=== PATIENT | male | born 1940 | race Caucasian/White ===

== ENCOUNTER 2018-03-27 00:52 | Day surgery (SDC) | payer MEDICARE, BC ==
[~2018-03-27] VITALS: Ht 182.9 cm; Wt 91.2 kg
[~2018-03-27 00:52] MED LIST: ACE325 PO; ASPI-715 PO; BIS10S PR; CEP500 PO; CIP500 PO; DEX1 PO; DOC100 PO; FAM20 PO; LISI-362 PO; LOR5/325 PO; LUMIGAN EYE DROPS OP; MOM PO; PAN40 PO; PHEN-530 PO; PHENA200 PO; SIMV-42 PO; TAM4 PO; TAMS0.4C76 PO; [UNRECOGNIZED DRUG - CODE] PO; [UNRECOGNIZED DRUG - OTHER] PO
[2018-03-27] MEDS ORDERED: OPHTHALMIC PROCEDURE 2 OU PRN ×2 (06:00)
[2018-03-27] MEDS ORDERED: acetaZOLAMIDE 500 MG CAPCR PO ONE (06:00)
[2018-03-27] MEDS ORDERED: OPHTHALMIC PROCEDURE 1 OU PRN (06:00)
[2018-03-27 13:13] VITALS: BP 123/89
[2018-03-27] MEDS ORDERED: NORMOSOL R SOLN(*) 1000 ML BAG 1,000 ML IV PRN (13:30)
[2018-03-27] MEDS ORDERED: LIDOCAINE/SOD BICARB 8.4% SYR ID ONE (13:30)
[2018-03-27 15:01] VITALS: BP 105/71
--- NOTE | 2018-03-29 13:12 | FOSTER LEFT EYE CATARACT ---
EVENT DATE: March 27, 2018 SURGEON: Leonard Novoa MD ANESTHESIA: Topical. PREOPERATIVE DIAGNOSIS Cataract, left eye. POSTOPERATIVE DIAGNOSIS Cataract, left eye. PROCEDURE Phacoemulsification of cataractous lens with implantation of an intraocular lens , left eye. DESCRIPTION OF PROCEDURE The risks and benefits and alternatives were carefully discussed with the patient, and preoperative consent was obtained. The patient was brought to the operating room after receiving topical anesthetic. The patient was prepped and draped using sterile technique in the usual manner. A stab incision was made, and the chamber was inflated with preservative-free lidocaine. DuoVisc was injected to inflate the chamber. A 2.2 mm blade was used to enter the anterior chamber. Utrata forceps were used to tear a circular capsulorrhexis. BSS was used to hydrodissect the nucleus. Phaco tip was introduced, and the nucleus was chopped into four quadrants. Each quadrant was removed. The I/A tip was used to remove the cortex. The bag was inflated with ProVisc. The intraocular lens was injected into the capsular bag. The I/A tip was used to remove the ProVisc. The wound was found to be watertight. Vigamox, Nevanac, and Maxitrol ointment were placed in the patient's eye. The patient's eye was patched, and the patient was taken to the recovery room in stable condition. The patient was examined in the recovery room and found to be stable prior to release from the hospital. JOSE
== END 2018-03-27 15:50 | disposition home health service (06) ==
LOC: OR 00:52
PROVIDERS: ATTEND Ophthalmology
DX: H25.12 Age-related nuclear cataract, left eye (principal)
CPT/HCPCS: 66984; A9270; V2632

== ENCOUNTER 2018-11-08 16:34 | Emergency (ER) | payer MEDICARE, BC ==
--- NOTE | 2018-11-08 16:38 | ER Report ---
History and Physical Time Seen By MD: 16:38 HPI/ROS CHIEF COMPLAINT: chest pain HISTORY OF PRESENT ILLNESS: PT here for evaluation of chest pain. Pt states that he has had substernal chest pain on and off for 2 weeks. pain comes about 2-3 times a day and can last up to 10 minutes. Pt States today at 2pm the pain came on and it is constant. Pt is unable to discribe. No sob. no nausea . no diaphoresis. Pt did have some tingling to right arm but that is gone.no weakness. no hx of cardiac ds but does have htn and hyperlipid. Pt takes a baby asa everyother day due to hx of frequent nose bleeds REVIEW OF SYSTEMS: Constitutional: No fever, no chills. Eyes: No discharge. ENT: No sore throat. Cardiovascular: + chest pain, no palpitations. Respiratory: No cough, no shortness of breath. Gastrointestinal: No abdominal pain, no vomiting. Genitourinary: No hematuria. Musculoskeletal: No back pain. Skin: No rashes. Neurological: No headache. Allergies: Coded Allergies: No Known Drug Allergies (Verified , 01/02/12) Home Meds Reported Medications Lisinopril (LISINOPRIL) 10 Mg Tablet, 10 MG PO QDAY, TAB 03/20/18 Simvastatin (Zocor) 20 Mg Tablet, 20 MG PO QHS, 0 Refills 12/25/11 Aspirin (Aspirin) 81 Mg Tablet.dr, 81 MG PO DAILY, 0 Refills 12/25/11 Past Medical/Surgical History Pmhx: htn, hyperlipid, prediabetic, cva, macular degeneration Hx Smoking: No Smoking Status: Former Smoker Hx Substance Use Disorder: No Hx Alcohol Use: Yes Constitutional Vital Sign - Last 24 Hours 11/08/18 11/08/18 11/08/18 11/08/18 16:34 16:44 16:49 16:59 Pulse ??? 80 Resp 12 B/P (MAP) 101/74 (83) 114/86 (95) Pulse Ox 90 11/08/18 11/08/18 11/08/18 11/08/18 17:04 17:15 17:19 17:30 Pulse 78 77 Resp 12 13 B/P (MAP) 101/82 (88) 104/72 (83) 110/72 (85) Pulse Ox 91 89 11/08/18 11/08/18 11/08/18 17:34 17:45 17:49 Pulse 81 73 Resp 10 40 B/P (MAP) 110/79 (89) Pulse Ox 90 91 Physical Exam General Appearance: The patient is alert, has no immediate need for airway protection and no signs of toxicity. Eyes: Pupils equal and round no pallor or injection, EOMI ENT: no pharyngeal erythema or exudates, Mucous membranes are moist, TM are nl b/l Respiratory: There are no retractions, lungs are clear to auscultation. Cardiovascular: Regular rate and rhythm. pulses are equal and symmetrical Gastrointestinal: Abdomen is soft and non tender, no masses, bowel sounds normal, no guarding, no rigidity or rebound Neurological: Cranial nerves II-XII grossly intact, no sensory or motor loss Skin: Warm and dry, no rashes. Musculoskeletal: Neck is supple non tender, no vertebral tenderness Extremities are nontender, non swollen and have full range of motion. DIFFERENTIAL DIAGNOSIS: After history and physical exam differential diagnosis was considered for mi, acs, esophageal spasm, costochondrities Medical Decision Making Data Points Result Diagram: 11/08/18 1705 11/08/18 1705 Laboratory Hematology Test 11/08/18 17:05 Red Blood Count 5.40 M/uL (4.00-5.60) Mean Corpuscular Volume 88.2 fL (80.0-96.0) Mean Corpuscular Hemoglobin 30.8 pg (26.0-33.0) Mean Corpuscular Hemoglobin Concent 35.0 g/dL (32.0-36.0) Red Cell Distribution Width 13.3 % (11.5-14.5) Mean Platelet Volume 9.1 fL (7.2-11.1) Neutrophils (%) (Auto) 55.8 % (39.4-72.5) Lymphocytes (%) (Auto) 28.3 % (17.6-49.6) Monocytes (%) (Auto) 9.5 % (4.1-12.4) Eosinophils (%) (Auto) 6.2 % (0.4-6.7) Basophils (%) (Auto) 0.2 % (0.3-1.4) Nucleated RBC Relative Count (auto) 0.0 /100WBC Neutrophils # (Auto) 4.9 K/uL (2.0-7.4) Lymphocytes # (Auto) 2.5 K/uL (1.3-3.6) Monocytes # (Auto) 0.8 K/uL (0.3-1.0) Eosinophils # (Auto) 0.5 K/uL (0.0-0.5) Basophils # (Auto) 0.0 K/uL (0.0-0.1) Nucleated RBC Absolute Count (auto) 0.00 K/uL Sodium Level 140 mmol/L (137-145) Potassium Level 4.1 mmol/L (3.5-5.0) Chloride Level 107 mmol/L (98-107) Carbon Dioxide Level 20 mmol/L (22-30) Blood Urea Nitrogen 27 mg/dl (9-21) Creatinine 1.40 mg/dl (0.66-1.25) Glomerular Filtration Rate Calc 49.3 Random Glucose 111 mg/dl (75-110) Calcium Level 9.3 mg/dl (8.4-10.2) Total Bilirubin 0.5 mg/dl (0.2-1.3) Aspartate Amino Transf (AST/SGOT) 25 U/L (0-35) Alanine Aminotransferase (ALT/SGPT) 33 U/L (0-56) Alkaline Phosphatase 53 U/L (0-126) Troponin I < 0.012 ng/ml Total Protein 7.1 g/dl (6.3-8.2) Albumin 4.2 g/dl (3.5-5.0) Lipase 56 U/L (23-300) Chemistry Test 11/08/18 17:05 White Blood Count 8.8 k/uL (4.5-11.0) Red Blood Count 5.40 M/uL (4.00-5.60) Hemoglobin 16.7 g/dL (14.0-18.0) Hematocrit 47.6 % (42.0-52.0) Mean Corpuscular Volume 88.2 fL (80.0-96.0) Mean Corpuscular Hemoglobin 30.8 pg (26.0-33.0) Mean Corpuscular Hemoglobin Concent 35.0 g/dL (32.0-36.0) Red Cell Distribution Width 13.3 % (11.5-14.5) Platelet Count 256 K/uL (150-450) Mean Platelet Volume 9.1 fL (7.2-11.1) Neutrophils (%) (Auto) 55.8 % (39.4-72.5) Lymphocytes (%) (Auto) 28.3 % (17.6-49.6) Monocytes (%) (Auto) 9.5 % (4.1-12.4) Eosinophils (%) (Auto) 6.2 % (0.4-6.7) Basophils (%) (Auto) 0.2 % (0.3-1.4) Nucleated RBC Relative Count (auto) 0.0 /100WBC Neutrophils # (Auto) 4.9 K/uL (2.0-7.4) Lymphocytes # (Auto) 2.5 K/uL (1.3-3.6) Monocytes # (Auto) 0.8 K/uL (0.3-1.0) Eosinophils # (Auto) 0.5 K/uL (0.0-0.5) Basophils # (Auto) 0.0 K/uL (0.0-0.1) Nucleated RBC Absolute Count (auto) 0.00 K/uL Glomerular Filtration Rate Calc 49.3 Calcium Level 9.3 mg/dl (8.4-10.2) Total Bilirubin 0.5 mg/dl (0.2-1.3) Aspartate Amino Transf (AST/SGOT) 25 U/L (0-35) Alanine Aminotransferase (ALT/SGPT) 33 U/L (0-56) Alkaline Phosphatase 53 U/L (0-126) Troponin I < 0.012 ng/ml Total Protein 7.1 g/dl (6.3-8.2) Albumin 4.2 g/dl (3.5-5.0) Lipase 56 U/L (23-300) EKG/Imaging EKG Interpretation nsr @ 80 Imaging napd ED Course/Re-evaluation Clinical Indication for ER IV: Hydration, IV Access ED Course check labs, ekg and cxr 11/08/2018 6:01:21 pm Pts initial blood work is stable. Pt does have mild dehydration so fluids hanging. Pt currently denies symptoms. Will keep pt for second troponin. PT signed out to Dr. Dc pending second troponin. Pt told that if troponin is negative we will let him go home but he will need close follow up for heart disease, stress test and or catherization. Decision to Disposition Date: Nov 08, 2018 Decision to Disposition Time: 18:02 Depart Departure Latest Vital Signs Vital Signs Date Time Temp Pulse Resp B/P (MAP) Pulse Ox O2 Delivery O2 Flow Rate FiO2 11/08/18 17:49 73 40 91 11/08/18 17:45 110/79 (89) Impression: Primary Impression: Dehydration Additional Impression: Chest pain Condition: Improved Disposition: HOME OR SELF-CARE Referrals: RUI BYRD MD (PCP) 2 Days Patient Instructions: Chest Pain (ED) Additional Instructions: Follow up with your family doctor. Call tomorrow to schedule an appointment this week. Recommend further evaluation for your chest discomfort which may require a stress test, echo or catherization. Return if symptoms worsen prior to seeing your doctor. Problem Qualifiers Additional Impression: Chest pain Chest pain type: unspecified Qualified Codes: R07.9 - Chest pain, unspecified CHUN AHN DO Nov 08, 2018 16:38
[2018-11-08] MEDS ORDERED: NITROGLYCERIN 0.4 MG SUBL SL SCH (16:45)
--- NOTE | 2018-11-08 16:54 | EKG ---
FACILITY: [facility] PATIENT NAME: SNEHA ALSTON : [id number] MR: [id number] V: [id number] EXAM DATE: ORDERING PHYSICIAN: CHUN AHN TECHNOLOGIST: LEYDI Test Reason : Blood Pressure : / mmHG Vent. Rate : 081 BPM Atrial Rate : 081 BPM P-R Int : 140 ms QRS Dur : 086 ms QT Int : 404 ms P-R-T Axes : 054 072 061 degrees QTc Int : 469 ms Sinus rhythm Nonspecific ST findings in the inferior leads No previous ECGs available Confirmed by KARINA ARREOLA ([id number] on 11/09/2018 6:27:57 AM Referred By: Confirmed By:KARINA ARREOLA
[2018-11-08 17:14] LABS: PLATELET COUNT, AUTOMATED 256 K/uL (150-450)
[2018-11-08] MEDS ORDERED: NS(*) 0.9% 1000 ML BAG 1,000 ML IV ONE (17:30)
--- NOTE | 2018-11-08 17:35 | RADIOLOGY IMAGING REPORT ---
FACILITY: [facility] PATIENT NAME: Chetan Burns : 1940 MR: [id number] V: [id number] EXAM DATE: ORDERING PHYSICIAN: CHUN AHN TECHNOLOGIST: Location: [facility] - [place] Patient: Chetan Burns : 1940 Visit/Account:[id number] Date of Sevice: 11/08/2018 Examination: CHEST PA AND LAT Comparison: 12/25/2011 and earlier. History: Chest Pain Findings: Cardiac and hilar contour size is normal. No consolidation, nodule, or peribronchial inflam mation. No pneumothorax, edema, or effusion. No acute osseous abnormality. Healed fracture of the rig ht lateral sixth rib it is unchanged. IMPRESSION: No evidence of acute cardiopulmonary disease. Report Dictated By: Kodak Simpson MD at 11/08/2018 5:28 PM Report E-Signed By: Kodak Simpson MD at 11/08/2018 5:31 PM WSN:[id number]
[2018-11-08 21:29] VITALS: BP 110/79
== END 2018-11-08 21:34 | disposition home or self-care (01) ==
LOC: ER 16:55
DX: E86.0 Dehydration (principal); R07.9 Chest pain, unspecified
CPT/HCPCS: 36415; 71046; 83690; 84484; 85025; 93005; 96360; 99284; J7030; 82040; 82247; 82310; 82374; 82435; 82565; 82947; 84075; 84132; 84155; 84295; 84450; 84460; 84520